=== PATIENT | male | born 1945 | race Caucasian/White ===

== ENCOUNTER 2016-12-27 07:25 | Day surgery (SDC) | payer OTHER ==
[~2016-12-27] VITALS: Ht 185.4 cm; Wt 82.6 kg
--- NOTE | ~2016-12-27 | O ---
[facility] [place] [address] OPERATIVE REPORT Name: PAWEL BONE Room #: 150-13 [facility].#: [id number] Admission: 12/27/16 Attend Phys: Alfonso Hutton MD Discharge: Date of : 43 Report #: [id number] THIS REPORT FOR: //name// CC: FAM unknown Alfonso Hutton DATE OF SERVICE: 12/27/2016 [employer]: None. PREOPERATIVE DIAGNOSIS: Unilateral left lower lid ectropion. POSTOPERATIVE DIAGNOSIS: Unilateral left lower lid ectropion. OPERATION PERFORMED: Unilateral left lower lid ectropion repair. ANESTHESIA: Local with IV sedation. COMPLICATIONS: None. 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 The current procedure is undertaken in order to improve the patient's visual function, lacrimal outflow and level of comfort. Informed consent was obtained to include but not limited to the risk of loss of vision, bleeding, infection, scarring, failure to improve the problem and need for further surgery. DESCRIPTION OF OPERATION: The patient was taken to the operating room, where 2% Xylocaine with epinephrine mixed with equal parts of 0.75% Marcaine with Wydase was administered transcutaneously and transconjunctivally to the lower lid and lateral canthal area. The patient was then prepped and draped in the usual sterile fashion. A Paola clamp was then used to clamp the lateral canthus, following which a sharp canthotomy and cantholysis were performed. The tarsal strip was prepared laterally, removing the lash-bearing portion of the redundant lid margin and the redundant tarsal plate. Hemostasis was achieved with a monopolar cautery, as it was throughout the case. The tarsal strip was then secured to the internal portion of the lateral orbital tubercle with 2 interrupted 5-0 Prolene sutures. The lateral canthal angle was sharply reformed as the subcutaneous structures and the skin were closed with multiple interrupted 6-0 plain gut sutures. The wound was cleaned and dressed with ophthalmic antibiotic ointment. The [address] [address] OPERATIVE REPORT Name: PAWEL BONE Room #: 150-13 [facility]..#: [id number] Admission: 12/27/16 Attend Phys: Alfonso Hutton MD Discharge: Date of : 43 Report #: [id number] patient was then transported to the recovery area, having tolerated the procedure well with no anesthetic or operative complications being noted. By: [id number] Alfonso Hutton MD /nt
[~2016-12-27 07:25] MED LIST: ASPIR 8181 MG PO; CENTRUM SILVER1 EAC2 PO; ENTRESTO 24 MG1 EACH PO; IRON325 MG PO; LANTUS SOL100 UNIT/1 SUBQ; METFORMIN HCL500 MG PO; TOPROL XL25 MG PO; VITAMIN D1000 UNI1 PO; ZOCOR20 MG PO
[2016-12-27 08:00] VITALS: BP 121/69
== END 2016-12-27 10:40 | disposition home or self-care (01) ==
LOC: OR 07:25 → TBA 07:26 → OR 10:40
DX: H02.105 Unspecified ectropion of left lower eyelid (principal); I10 Essential (primary) hypertension; E11.9 Type 2 diabetes mellitus without complications; E78.5 Hyperlipidemia, unspecified; D64.9 Anemia, unspecified; Z98.41 Cataract extraction status, right eye; Z98.42 Cataract extraction status, left eye; Z96.1 Presence of intraocular lens; Z96.652 Presence of left artificial knee joint; Z87.891 Personal history of nicotine dependence; Z86.73 Personal history of transient ischemic attack (TIA), and cerebral infarction without residual deficits; Z98.890 Other specified postprocedural states; Z79.899 Other long term (current) drug therapy; Z79.82 Long term (current) use of aspirin
CPT/HCPCS: 50010; 50101; 50386; 50398; 51636; 56527; 56531; 62110; 62850; 70005